=== PATIENT | male | born 2005 | race Caucasian/White ===

== ENCOUNTER 2024-03-27 11:52 | Outpatient (CLI) | payer BC, SELFPAY | END 2024-03-27 11:53 | disposition home or self-care (01) | LOC: NFLDREF 04-02 03:59 | PROVIDERS: PCP Physician Assistant Medical; Referring Provider Physician Assistant Medical; Visit Provider Physician Assistant Medical | DX: F41.9 Anxiety disorder, unspecified (principal); F32.A Depression, unspecified; R53.83 Other fatigue; Z11.3 Encounter for screening for infections with a predominantly sexual mode of transmission | CPT/HCPCS: 82306; 82607; 82728; 84443; 86592; 86703; 86706; 86803; 87340; 87491; 87591 ==